=== PATIENT | male | born 1970 | race Caucasian/White ===

== ENCOUNTER 2022-02-17 17:45 | Emergency (ER) | payer MEDICARE, OTHER ==
[2022-02-17 18:55] LABS: HEMOGLOBIN 15.4 gm/dl (14.0-17.5); RED BLOOD COUNT 4.82 M/UL (4.20-5.50); WHITE BLOOD COUNT 9.5 K/UL (4.5-11.0)
[2022-02-17 19:18] LABS: BUN/CREATININE RATIO 8 (0-10)
== END 2022-02-17 21:44 | disposition home or self-care (01) ==
LOC: ER1 17:45
DX: R10.13 Epigastric pain (principal); I51.9 Heart disease, unspecified; I25.2 Old myocardial infarction; F17.210 Nicotine dependence, cigarettes, uncomplicated; Z88.5 Allergy status to narcotic agent
CPT/HCPCS: 71045; 75635; 80053; 82550; 82553; 84484; 85025; 93005; 96374; 99284; C9113; Q9967